=== PATIENT | female | born 1975 | race Caucasian/White ===

== ENCOUNTER 2025-03-22 11:35 | Emergency (ER) | payer BC ==
[~2025-03-22] VITALS: Ht 160 cm; Wt 138.6 kg
[~2025-03-22 11:35] MED LIST: CYCLOBENZAPRINE10 MG PO; HUMIRA40 MG/0.4 SUB-Q; HYDROCODON-ACE1 EAC8 PO; LOSARTAN POTAS100 MG PO; MUCINEX600 MG PO; ONDANSETRON ODT8 MG PO; PREGABALIN75 MG PO; RIZATRIPTAN10 M1 PO; SUDAFED 12 HOU120 MG PO; SYNTHROID200 MCG PO; TRAZODONE HCL100 MG PO; ZOLPIDEM TARTRAT5 MG PO
[2025-03-22] MEDS ORDERED: ACETAMINOPHEN 500 MG TAB PO ONE (12:15)
[2025-03-22] MEDS ORDERED: SODIUM CHLORIDE 0.9% 1,000 ML IV PRN (12:15)
[2025-03-22 12:27] LABS: BASOPHILS 1.3 % (0-2); EOSINOPHILS 4.3 % (0-6); HEMATOCRIT 41.4 % (35.0-50.0); HEMOGLOBIN 14.5 g/dL (12.0-18.0); LYMPHOCYTES 32.1 % (24-44); MCH 31.2 (27-36); MCHC 34.9 g/dl (30-36); MCV 89.5 fl (81-99); MONOCYTES 10.5 % (0-12); NEUTROPHILS 51.8 % (39-80); PLATELET COUNT 145 K/uL (140-440); RBC 4.63 M/ul (4.3-5.7); RDW 13.2 (10.5-15.0)
[2025-03-22 12:43] LABS: ALBUMIN 3.4 g/dL (3.4-5.0); ALBUMIN/GLOBULIN RATIO 1.1 (1.1-2.4); ANION GAP 10.1 (7-21); BILIRUBIN, TOTAL 0.8 mg/dL (0.2-1.0); BUN/CREATININE RATIO 10.71 (6.0-28.6); CALCIUM 8.9 mg/dL (8.5-10.1); CREATININE, SERUM 1.12 mg/dL (0.55-1.02); POTASSIUM 4.1 mmol/L (3.5-5.1); PROTEIN, TOTAL 6.5 g/dL (6.4-8.2)
[2025-03-22 14:58] VITALS: BP 146/90
== END 2025-03-22 14:58 | disposition home or self-care (01) ==
LOC: ED 11:35
PROVIDERS: Emergency Medicine
DX: M54.50 Low back pain, unspecified (principal); G97.1 Other reaction to spinal and lumbar puncture; Z79.899 Other long term (current) drug therapy; Z88.2 Allergy status to sulfonamides; Z88.0 Allergy status to penicillin; Z91.040 Latex allergy status
CPT/HCPCS: 36415; 80053; 85025; 99284; A9270; J7030

== ENCOUNTER 2025-09-12 19:36 | Emergency (ER) | payer BC ==
[~2025-09-12] VITALS: Ht 160 cm; Wt 132.4 kg
[2025-09-12] MEDS ORDERED: ALBUTEROL/IPRATROPIUM 3 ML NEB INH PRN (20:45)
[2025-09-12 20:50] LABS: BASOPHILS 0.7 % (0.1-1.2); EOSINOPHILS 3.1 % (0.7-5.8); LYMPHOCYTES 36.5 % (19.3-51.7); MCH 31.0 PG (25.6-32.2); MCHC 34.2 g/dL (32.2-35.5); MCV 90.6 fL (79.4-94.8); MONOCYTES 9.6 % (4.7-12.5); NEUTROPHILS 50.0 % (34.0-71.1); RBC 4.87 M/uL (3.93-5.22)
[2025-09-12] MEDS ORDERED: DEXAMETHASONE SOD PHOS 10 MG/ML VIAL IV ONE (21:15)
[2025-09-12] MEDS ORDERED: ALBUTEROL SULFATE 8 GM HOME.PACK INH ONE (21:15)
[2025-09-12] MEDS ORDERED: METHYLPREDNISOLO4 M1 PO (21:22)
[2025-09-12 21:30] LABS: ALT (SGPT) 33.0 U/L (14-59); AST (SGOT) 19.0 U/L (15-37); GLOMERULAR FILTRATION RATE,EST 64.0 mL/min (>60); PROTEIN, TOTAL 7.4 g/dL (6.4-8.2); UREA NITROGEN 14.0 mg/dL (7-18)
[2025-09-12 21:55] VITALS: BP 151/93
--- NOTE | 2025-09-13 12:05 | EKG ---
[facility] [address] [facility] [place] [address] Signed Normal sinus rhythm Normal ECG When compared with ECG of 30-JAN-2024 20:30, Nonspecific T wave abnormality now evident in Anterior leads Confirmed by Daniel Quesada DO ([id number]) on 09/13/2025 12:05:05 PM Electronically Signed By: DANIEL QUESADA DO 09/13/25 1205 PATIENT NAME: JOS BRENNAN Electrocardiogram DATE OF : 77 PHYSICIAN: DANIEL QUESADA DO REPORT #: [id number] REPORT IS CONFIDENTIAL AND NOT TO BE RELEASED WITHOUT AUTHORIZATION
== END 2025-09-12 21:56 | disposition home or self-care (01) ==
LOC: ED 19:36
PROVIDERS: Internal Medicine
DX: J20.8 Acute bronchitis due to other specified organisms (principal); Z88.0 Allergy status to penicillin; Z88.2 Allergy status to sulfonamides; Z88.1 Allergy status to other antibiotic agents; Z91.040 Latex allergy status; Z79.890 Hormone replacement therapy; Z79.899 Other long term (current) drug therapy
CPT/HCPCS: 36415; 71045; 80053; 83735; 83880; 84484; 85025; 93005; 93010; 94640; 96374; 99284-25; J1100